=== PATIENT | female | born 1960 ===

== ENCOUNTER 2016-08-22 14:45 | Outpatient (CLI) | payer BC ==
[2016-08-22 16:24] LABS: Cardiac Risk 4.1 (Less than 4.5)
== END 2016-08-22 14:46 | disposition home or self-care (01) ==
LOC: LABLEX 14:45
PROVIDERS: ATTEND Family Medicine
DX: E78.00 Pure hypercholesterolemia, unspecified (principal)
CPT/HCPCS: 80061